=== PATIENT | male | born 1985 | race Caucasian/White ===

== ENCOUNTER 2017-09-22 19:28 | Emergency (ER) | payer OTHER ==
[~2017-09-22 19:28] MED LIST: NAPROSYN500 MG PO
[2017-09-22 19:39] LABS: HEMATOCRIT 44.4 % (38.0-50.0); HEMOGLOBIN 14.9 G/DL (12.5-16.6); MCH 28.1 PG (29.0-34.0); MCHC 33.6 G/DL (30.0-36.0); MCV 83.8 FL (86-99); PLATELET COUNT 310 K/uL (156-360); RBC DIS.WIDTH-CV 12.6 % (11.8-14.6); WHITE BLOOD COUNT 8.7 K/uL (4.1-10.2)
[2017-09-22 20:03] LABS: AMYLASE 73 IU/L (1-118); CHLORIDE 108 mEq/L (99-109); POTASSIUM 4.1 mEq/L (3.7-5.4); SODIUM 140 mEq/L (136-147)
[2017-09-22 20:05] LABS: GLUCOSE 104 mg/dL (70-99)
[2017-09-22 20:08] LABS: SERUM ETHYL ALCOHOL < 10 mg/dL
[2017-09-22 20:09] LABS: GFR ESTIMATE (CALCULATED) > 59 mL/min/ (58.99-99999)
[2017-09-22 20:10] LABS: UREA NITROGEN (BUN) 10 mg/dL (9-23)
[2017-09-22 20:12] LABS: LIPASE 19 U/L (1.0-51.0)
[2017-09-22 20:21] LABS: ABS NEUTROPHIL COUNT 6.8; ANISOCYTOSIS 2+; ATYPICAL LYMPHOCYTE 3.6 %; BAND NEUTROPHILS 4.4 % (0-8.0); EOSINOPHIL ABS CT 0; LYMPHOCYTES 14.3 % (15.0-45.0); METAMYELOCYTES 0.9 %; MICROCYTOSIS 2+; MONOCYTES 3.6 % (0-9.0); PLAT.SUFFICIENCY ADEQUATE; SEG.NEUTROPHILS 73.2 % (46.0-76.0)
[2017-09-22] MEDS ORDERED: ULTRAM50 MG PO (20:50)
[2017-09-22 21:09] LABS: APPEARANCE CLEAR ((CLEAR)); BILIRUBIN NEGATIVE; BLOOD NEGATIVE; COLOR STRAW ((YELLOW)); GLUCOSE (STRIP) NEGATIVE; KETONES NEGATIVE; LEUKOCYTES NEGATIVE; NITRITE NEGATIVE; PROTEIN (STRIP) NEGATIVE; SPECIFIC GRAVITY 1.017 (1.000-1.030); UCUL ADDED? NO; UROBILINOGEN 0.2 MG/DL (0.2-1.0)
[2017-09-22 21:42] LABS: AMPHETAMINE NEGATIVE (500 ng/mL); BARBITURATES NEGATIVE (200 ng/mL); BENZODIAZEPINES NEGATIVE (150 ng/mL); BUPRENORPHINE NEGATIVE (10 ng/mL); COCAINE NEGATIVE (150 ng/mL); METHADONE NEGATIVE (200 ng/mL); METHAMPHETAMINE NEGATIVE (500 ng/mL); OPIATES (MORPHINE) NEGATIVE (100 ng/mL); OXYCODONE NEGATIVE (100 ng/mL); PHENCYCLIDINE NEGATIVE (25 ng/mL); PROPOXYPHENE NEGATIVE (300 ng/mL); THC CANNABINOIDS NEGATIVE (50 ng/mL); TRICYCLIC ANTIDEPRESSANTS NEGATIVE (300 ng/mL)
== END 2017-09-22 23:35 | disposition home or self-care (01) ==
LOC: TRA 19:28
PROVIDERS: Emergency Medicine
PROC: 0HQ1XZZ Repair Face Skin, External Approach (ICD-10-PCS; principal; 2017-09-22)
DX: S02.2XXA Fracture of nasal bones, initial encounter for closed fracture (principal); S01.111A Laceration without foreign body of right eyelid and periocular area, initial encounter; V03.00XA Pedestrian on foot injured in collision with car, pick-up truck or van in nontraffic accident, initial encounter; S80.212A Abrasion, left knee, initial encounter; M79.662 Pain in left lower leg; M79.644 Pain in right finger(s)
CPT/HCPCS: 70450; 70486; 71260; 72125; 72129; 72132; 73130; 73140; 73560; 73590; 74177; 80048; 81003; 82150; 83690; 85025; 86850; 86900; 86901; 99281; 99285; G0480; J2405; J3010